=== PATIENT | female | born 1990 | race Caucasian/White ===

== ENCOUNTER → 2016-08-24 | Outpatient (CLI) | payer OTHER ==
[~2016-08-24] MED LIST: FAMO20TA5 PO; FLUT16SP22 NS; HYDR-2856 PO; LORA10CA PO; PRED20TA PO; SULF1TAB38 PO
--- OUTSIDE RECORDS SUMMARY | 2016-08-24 10:12 | XMS REPORT | Continuity of Care Document ---
Author Author [facility] Organization [facility] Address Unknown Phone Unavailable Allergies Active Description Code Type Severity Reaction Onset Reported/Identified Relationship to Patient Clinical Status Yes morphine [id number] Drug Allergy Unknown N/A 12/10/2014 Medications Problems Date Dx Coded Attending Type Code Diagnosis Diagnosed By 03/16/2013 MYESHA SHAFER MD Ot 373.13 ABSCESS OF EYELID 03/16/2013 MYESHA SHAFER MD Ot 682.6 CELLULITIS OF LEG 12/10/2014 BLAKE ARNOLD DO Ot 708.9 12/10/2014 BLAKE ANROLD DO Ot 782.1 Procedures Results Encounters ACCT No. Visit Date/Time Discharge Status Pt. Type Provider Facility Loc./Unit Complaint [id number] 12/10/2014 22:08:00 2014 23:51:00 DIS Emergency BLAKE ARNOLD DO [facility] ER [id number] 03/16/2013 12:34:00 2012 16:55:00 DIS Emergency MYESHA SHAFER MD [facility] ER POSS SPIDER BITE/ABSCESS ON LEG KNOT ON LEFT EYE
--- NOTE | 2016-08-24 11:59 | Diagnostic Imaging Report ---
US NON OB PELVIS COMP/TRANSVAG INDICATION: Pelvic pain since IUD placement. Technique: Transabdominal and transvaginal grayscale, color Doppler and pulse duplex imaging of the pelvis was performed. Findings: The uterus measures 6.6 x 3.9 x 3.6 cm. The myometrium is normal in echogenicity without discrete mass. There is a linear echogenic IUD located in the endometrial canal. Its position appears appropriate in the body and fundus region, with echogenic extensions extending into the bilateral cornua. The endometrium measures up to 0.4 cm in thickness. A small amount of simple appearing fluid is present in the lower endometrial canal. The right ovary measures 2.5 x 2.3 x 1.3 cm. Right ovary is physiologic in appearance with small follicles present. Blood flow is present in the right ovary by color Doppler and spectral duplex waveform imaging. The left ovary is not visualized due to overlying bowel gas. No suspicious adnexal mass on either side. Impression: 1. IUD appropriately positioned in the upper endometrial canal with limbs extending into the bilateral cornua. No evidence of uterine perforation. 2. Physiologic appearance of the right ovary. 3. Left ovary is not seen due to overlying bowel gas in the left adnexa. Dictated by: Dictated on workstation # [id number]
== END ==
LOC: RAD 10:08
PROVIDERS: ATTEND Nurse Practitioner Family
DX: R10.2 Pelvic and perineal pain (principal)
CPT/HCPCS: 76830; 76856

== ENCOUNTER → 2017-08-04 | Outpatient (CLI) | payer OTHER ==
--- NOTE | 2017-08-04 13:08 | Diagnostic Imaging Report ---
PROCEDURE: US OB SINGLE FETUS <14 WKS. TECHNIQUE: Multiple real-time grayscale images were obtained over the gravid uterus in various projections. INDICATION: Dating. FINDINGS: There is an intrauterine gestational sac containing a pole. The crown-rump length measurement is 3.5 cm consistent with 10 weeks 3 days gestation. heart rate is recorded at 172 beats per minute. No perigestational sac hemorrhage is detected. Adnexal evaluation was performed. The ovaries were not visualized due to overlying bowel gas. IMPRESSION: Single live IUP of 10 weeks 3 days gestational age. The estimated date of confinement sonographically is 02/27/2018. Dictated by: Dictated on workstation # [id number]
== END ==
LOC: RAD 10:47
PROVIDERS: ATTEND Family Medicine
DX: Z34.01 Encounter for supervision of normal first pregnancy, first trimester (principal); Z3A.10 10 weeks gestation of pregnancy
CPT/HCPCS: 76801

== ENCOUNTER → 2017-10-07 | Outpatient (CLI) | payer OTHER, MEDICAID ==
--- NOTE | 2017-10-07 13:52 | Diagnostic Imaging Report ---
INDICATION: survey. TECHNIQUE: Multiple real-time grayscale images were obtained over the gravid uterus. COMPARISON: 08/04/2017. FINDINGS: The prior OB ultrasound exam of 08/04/2017 noted a single live fetus of approximately 10 weeks 3 days gestation +/-1 week. On this exam, the fetus is again visualized. The fetus is now in transverse presentation. heart motion was noted and a rate of 153 BPM was recorded. There were no abnormalities identified with certainty. However, there do appear to be small bilateral choroid plexus cysts. These are of uncertain etiology. A short-term (4-6 week) followup exam would be recommended for further study. The placenta is posterior and there is no previa. The amniotic fluid volume is within normal limits. The growth parameters are fairly uniform and have progressed as expected since the prior exam. IMPRESSION: 1. There is a single live fetus of approximately 19 weeks 4 days gestation +/-1 week. The EDC remains February 27, 2018. 2. There were no abnormalities identified. However, there do appear to be small bilateral choroid plexus cysts. These are of uncertain etiology. Recommendations as above. 3. The growth parameters have progressed as expected since the prior study. Biometrical measurements are as follows: Biparietal 4.79 cm, age 20 weeks 4 days. Head circumference 17.79 cm, age 20 weeks 2 days. Abdominal circumference 14.09 cm, age 19 weeks 4 days. Femur length 3.01 cm, age 19 weeks 3 days. Sonographic estimate age: 20 weeks 0 days. Sonographic estimated date of delivery: 02/24/18. Estimated Weight: 297 gm (+/- 43 gm). LMP percentile: 41%. heart rate: 153 beats per minute. number: 1 of 1. Dictated by: Dictated on workstation # [id number]
== END ==
LOC: RAD 11:57
PROVIDERS: ATTEND Family Medicine
DX: Z36.89 Encounter for other specified antenatal screening (principal); Z3A.19 19 weeks gestation of pregnancy
CPT/HCPCS: 76805

== ENCOUNTER → 2017-11-15 | Outpatient (CLI) | payer OTHER, MEDICAID ==
--- NOTE | 2017-11-15 12:44 | Diagnostic Imaging Report ---
INDICATION: Followup choroid plexus cysts. TECHNIQUE: Multiple real-time grayscale images were obtained over the gravid uterus. COMPARISON: 10/07/2017. FINDINGS: There is a single living intrauterine . The biometry correlates with gestational age of 26 weeks 3 days. The fetus is in a cephalic presentation. There is a normal volume of amniotic fluid. The placenta is posterior. There is no previa. Note is again made of some choroid plexus cysts, however they are less prominent than seen on the prior examination. The heart rate is 147 beats per minute. IMPRESSION: 1. Single living intrauterine with sonographically estimated gestational age of 26 weeks 3 days and estimated date of confinement of February 18, 2018. 2. Persistent choroid plexus cysts, although the right-sided cyst is not well visualized as on the previous examination. 3. Otherwise, unremarkable limited anatomical survey. Biometrical measurements are as follows: Biparietal 6.62 cm, age 26 weeks 5 days. Head circumference 24.18 cm, age 26 weeks 2 days. Abdominal circumference 21.34 cm, age 25 weeks 6 days. Femur length 4.89 cm, age 26 weeks 4 days. Sonographic estimate age: 26 weeks 3 days. Sonographic estimated date of delivery: 02/18/18. Estimated Weight: 898 gm (+/- 131 gm). LMP percentile: 83%. heart rate: 147 beats per minute. number: 1 of 1. Dictated by: Dictated on workstation # [id number]
== END ==
LOC: RAD 10:01
PROVIDERS: ATTEND Family Medicine
DX: O99.89 Other specified diseases and conditions complicating pregnancy, childbirth and the puerperium (principal); G93.0 Cerebral cysts; Z3A.26 26 weeks gestation of pregnancy
CPT/HCPCS: 76816

== ENCOUNTER 2018-02-23 08:15 | Inpatient (IN) | payer OTHER, MEDICAID ==
[~2018-02-23] VITALS: Ht 167.6 cm; Wt 92.1 kg
[2018-02-23 19:30] VITALS: BP 127/80
--- OUTSIDE RECORDS SUMMARY | 2018-02-23 19:30 | XMS REPORT ---
Author Author HOLLY CASANOVA Organization [facility] Address [address] [place] [address] Care Team Providers Care [employer] Operator Name Role Phone EDILBERTO HOLLY Unavailable PROBLEMS Type Condition ICD9-CM Code [id number] Code Onset Dates Condition Status SNOMED Code Problem Seasonal allergic rhinitis, unspecified allergic rhinitis trigger J30.2 Active [id number] ALLERGIES Substance Reaction Event Type Date Status Morphine Sulfate Unknown Drug Allergy Aug, Active peanuts Unknown Non Drug Allergy Aug, Active SOCIAL HISTORY Never Assessed PLAN OF CARE Activity Details Follow Up pending us or with pcp Reason: VITAL SIGNS Height 64 in 2016-08-13 Weight 134.4 lbs 2016-08-13 Temperature 98.0 degrees Fahrenheit 2016-08-13 Heart Rate 84 bpm 2016-08-13 Respiratory Rate 18 2016-08-13 BMI 23.07 kg/m2 2016-08-13 Blood pressure systolic 124 mmHg 2016-08-13 Blood pressure diastolic 82 mmHg 2016-08-13 MEDICATIONS Medication Instructions Dosage Frequency Start Date End Date Duration Status Mirena Active Benadryl 25 MG Orally every 8 hrs 1 capsule as needed 8h Active Angelica 180 MG Orally Once a day 1 tablet as needed 24h Active Phentermine HCl 37.5 MG Active RESULTS Name Result Date Reference Range UA LONG DIP (IN HOUSE) 2016-08-13 Lot # [id number] Exp date 07/14/17 Clarity slightly cloudy Color yellow Odor no GLU Negative FAITH Negative KET Negative SG <=1.005 BLO Negative pH 6.0 Protein Negative URO 0.2 NIT Negative ASAD Negative Lot # Exp date PROCEDURES Procedure Date Ordered Result Body Site URINALYSIS, AUTO, W/O SCOPE August 13, 2016 IMMUNIZATIONS No Known Immunizations MEDICAL (GENERAL) HISTORY Type Description Date Medical History Seasonal Allergies Surgical History Tonsilectomy Surgical History Breast Reduction
--- OUTSIDE RECORDS SUMMARY | 2018-02-23 19:30 | XMS REPORT ---
Author Author HOLLY CASANOVA Organization [facility] Address [address] [place] [address] Care Team Providers Care [employer] Teacher Name Role Phone HOLLY CASANOVA Unavailable PROBLEMS Type Condition ICD9-CM Code BMB26-UK Code Onset Dates Condition Status SNOMED Code Problem Seasonal allergic rhinitis, unspecified allergic rhinitis trigger J30.2 Active [id number] ALLERGIES Substance Reaction Event Type Date Status Morphine Sulfate Unknown Drug Allergy Jul, Active SOCIAL HISTORY Never Assessed PLAN OF CARE Activity Details Follow Up if not improving with PCP or reg follow up Reason: VITAL SIGNS Height 64 in 2016-07-23 Weight 132.0 lbs 2016-07-23 Temperature 99.3 degrees Fahrenheit 2016-07-23 Heart Rate 86 bpm 2016-07-23 Respiratory Rate 18 2016-07-23 BMI 22.66 kg/m2 2016-07-23 Blood pressure systolic 102 mmHg 2016-07-23 Blood pressure diastolic 66 mmHg 2016-07-23 MEDICATIONS Medication Instructions Dosage Frequency Start Date End Date Duration Status Sudafed 12 Hour 120 MG Orally every 12 hrs 1 tablet as needed 12h Jul, 10 days Active Angelica 180 MG Orally Once a day 1 tablet as needed 24h Active Mirena Active Benadryl 25 MG Orally every 8 hrs 1 capsule as needed 8h Active PredniSONE 20 mg Orally Once a day 1 tablet 24h Jul, Jul, 05 days Active RESULTS No Results PROCEDURES No Known procedures IMMUNIZATIONS No Known Immunizations MEDICAL (GENERAL) HISTORY Type Description Date Medical History Seasonal Allergies Surgical History Tonsilectomy Surgical History Breast Reduction
[2018-02-23] MEDS ORDERED: D5 LR IV SOLUTION 1,000 ML IV ONE (19:32)
[2018-02-23] MEDS ORDERED: DINOPROSTONE 10 MG (CERVIDIL) INSERT ONE ×2 (19:33→19:38)
[2018-02-23] MEDS ORDERED: FEXO180T84 PO (19:47)
[2018-02-23] MEDS ORDERED: CALC-308 PO (19:47)
[2018-02-23] MEDS ORDERED: PREN-142 PO (19:47)
[2018-02-23] MEDS ORDERED: DINOPROSTONE 10 MG (CERVIDIL) INSERT PV ONE (20:00)
[2018-02-23] MEDS ORDERED: CATHETER FLUSH 10 ML SYR IV PRN (20:00)
[2018-02-23] MEDS ORDERED: BUTORPHANOL INJ 2 MG/ML (STADOL) VIAL IV PRN (20:00)
[2018-02-23] MEDS ORDERED: MINERAL OIL CONCENTRATE 99.9% 15 ML UDC TOP PRN (20:00)
[2018-02-23] MEDS ORDERED: ZOLPIDEM 5 MG (AMBIEN) TAB PO PRN (20:00)
[2018-02-23] MEDS: D5 LR IV SOLUTION 1,000 ML IV SCH (20:15)
[2018-02-23 20:19] LABS: BASOPHILS % (AUTO) 0 % (0-10); EOSINOPHILS # (AUTO) 0.1 10^3/uL (0.0-0.3); EOSINOPHILS % (AUTO) 1 % (0-10); HEMATOCRIT 32 % (35-52); HEMOGLOBIN 11.1 G/DL (11.5-16.0); LYMPHOCYTES # (AUTO) 2.6 X 10^3 (1.0-4.0); LYMPHOCYTES % (AUTO) 23 % (12-44); MEAN CORPUSCULAR HEMOGLOBIN 31 PG (25-34); MEAN CORPUSCULAR HGB CONC 35 G/DL (32-36); MEAN CORPUSCULAR VOLUME 89 FL (80-99); MEAN PLATELET VOLUME 10.7 FL (7.4-10.4); MONOCYTES # (AUTO) 1.1 X 10^3 (0.0-1.0); MONOCYTES % (AUTO) 10 % (0-12); NEUTROPHILS # (AUTO) 7.3 X 10^3 (1.8-7.8); NEUTROPHILS % (AUTO) 66 % (42-75); PLATELET COUNT 239 10^3/uL (130-400); RED CELL DISTRIBUTION WIDTH 14.5 % (10.0-14.5); WHITE BLOOD COUNT 11.1 10^3/uL (4.3-11.0)
[2018-02-23 20:45] LABS: BILIRUBIN,URINE NEGATIVE (NEGATIVE); CLARITY,URINE CLEAR; COLOR,URINE YELLOW; GLUCOSE, URINE (UA) NEGATIVE (NEGATIVE); KETONES,URINE NEGATIVE (NEGATIVE); LEUKOCYTE ESTERASE ,URINE NEGATIVE (NEGATIVE); NITRITE,URINE NEGATIVE (NEGATIVE); PH,URINE 7 (5-9); PROTEIN,URINE NEGATIVE (NEGATIVE); UROBILINOGEN,URINE NORMAL (NORMAL)
[2018-02-23 20:55] LABS: RBC,URINE RARE /HPF
[2018-02-23 20:56] LABS: SQUAMOUS EPITHELIAL CELL,UR 0-2 /HPF
[2018-02-23 23:45] VITALS: BP 138/74
[2018-02-24] VITALS (32 sets, daily range): BP systolic 106–168; BP diastolic 52–97
[2018-02-24] MEDS: D5 LR IV SOLUTION 1,000 ML IV SCH (03:42)
[2018-02-24] MEDS ORDERED: OXYTOCIN/NORMAL SALINE 500 ML IV SCH ×2 (07:24→12:33)
--- NOTE | 2018-02-24 07:28 | History & Physical-OB ---
OB - Chief Complaint & HPI Date/Time Date of Admission: Date of Admission: Feb 23, 2018 at 19:09 Time Seen by Provider: 07:20 Chief Complaint/History OB-Reason for Admission/Chief: Induction of Labor Hx : 1 Hx Para: 0 Expected Date of Delivery: Feb 27, 2018 Gestational Age in Weeks: 39 Gestational Age in Days: 3 Admission Nurse Assessment Rev: Yes History of Labs GBS negative at 36 weeks Allergies and Home Medications Allergies Coded Allergies: morphine (Verified Allergy, Unknown, 12/10/14) Home Medications Calcium Carbonate 500 Mg Tab.chew, 500 MG PO DAILY, (Reported) Fexofenadine HCl 180 Mg Tablet, 180 MG PO DAILY, (Reported) Vit No.124/Iron/FA 1 Each Tablet, 1 EACH PO DAILY, (Reported) Patient Home Medication List Home Medication List Reviewed: Yes OB - History Hx of Present Care: Yes Ultrasounds: Normal mid trimester US Abnormal Ultrasound Findings: Choroid plexus cysts resolution Obstetrical Complications: None Medical Complications: None Delivery History Hx Blood Disorders: No Adverse Rxn to Tranfusion: No Patient Past Medical History No chronic medical problems Social History/Family History HIV/AIDS: No Recent Infectious Disease Expo: No Sexually Transmitted Disease: No Alcohol Use: Denies Use Recreational Drug Use: No Immunizations Hepatitis A: Yes Hepatitis B: Yes Tetanus Booster (TDap): More than 5yrs OB - Admission Exam Physical Exam HEENT: Moist Membranes Heart: Rhythm Normal Lungs: Clear Abdomen: Gravid Cervical Dilatation: 1cm Effacement: 75% Station: -3 Membranes: Intact Heart Rate: 140's Accelerations: Accelerations Present Decelerations: No Decelerations Short Term Variability: Present Application Penetration Tester Variability: Average (6-25) Contractions on Admission: >10 Minutes Apart Intensity: Mild Sebastian Scoring Tool (Modified) Dilation (cm): 1-2cm (1) Effacement (%): 51-79% (2) Descent/Station: -2 (1) Cervix Consistency: Medium(1) Cervix Position: Middle/Mid-Position (1) Sebastian Score: 5 Labs Laboratory Tests Test 02/23/18 19:30 02/23/18 20:10 Range/Units White Blood Count 11.1 H 4.3-11.0 10^3/uL Red Blood Count 3.60 L 4.35-5.85 10^6/uL Hemoglobin 11.1 L 11.5-16.0 G/DL Hematocrit 32 L 35-52 % Mean Corpuscular Volume 89 80-99 FL Mean Corpuscular Hemoglobin 31 25-34 PG Mean Corpuscular Hemoglobin Concent 35 32-36 G/DL Red Cell Distribution Width 14.5 10.0-14.5 % Platelet Count 239 130-400 10^3/uL Mean Platelet Volume 10.7 H 7.4-10.4 FL Neutrophils (%) (Auto) 66 42-75 % Lymphocytes (%) (Auto) 23 12-44 % Monocytes (%) (Auto) 10 0-12 % Eosinophils (%) (Auto) 1 0-10 % Basophils (%) (Auto) 0 0-10 % Neutrophils # (Auto) 7.3 1.8-7.8 X 10^3 Lymphocytes # (Auto) 2.6 1.0-4.0 X 10^3 Monocytes # (Auto) 1.1 H 0.0-1.0 X 10^3 Eosinophils # (Auto) 0.1 0.0-0.3 10^3/uL Basophils # (Auto) 0.0 0.0-0.1 10^3/uL Urine Color YELLOW Urine Clarity CLEAR Urine pH 7 5-9 Urine Specific Weaver 1.010 L 1.016-1.022 Urine Protein NEGATIVE NEGATIVE Urine Glucose (UA) NEGATIVE NEGATIVE Urine Ketones NEGATIVE NEGATIVE Urine Nitrite NEGATIVE NEGATIVE Urine Bilirubin NEGATIVE NEGATIVE Urine Urobilinogen NORMAL NORMAL MG/DL Urine Leukocyte Esterase NEGATIVE NEGATIVE Urine RBC (Auto) NEGATIVE NEGATIVE Urine RBC RARE /HPF Urine WBC NONE /HPF Urine Squamous Epithelial Cells 0-2 /HPF Urine Crystals NONE /LPF Urine Bacteria NONE /HPF Urine Casts NONE /LPF Urine Mucus NEGATIVE /LPF Urine Culture Indicated NO OB - Assessment/Plan/Diagnosis Assessment Assessment: induction of labor Admission Dx 1. IUP at term 39w3d Admission Status: Inpatient Order (span 2 midnights) Reason for Inpatient Admission: L&D Plan Plan: Induction (by cervidil) Induction Method: AROM Other Plan -would like epidural -pitocin as needed. ANGELINA MANRIQUEZ MD Feb 24, 2018 07:28
[2018-02-24] MEDS ORDERED: SUFENTA 0.6MCG/ML BUPIVA 0.125 100 ML ONE (07:49)
[2018-02-24] MEDS ORDERED: LIDOCAINE PF 2% 2 ML (XYLOCAINE) VIAL ONE ×2 (08:02)
[2018-02-24] MEDS ORDERED: fentaNYL INJECTION 100 MCG/2 ML AMP ONE (08:02)
[2018-02-24] MEDS ORDERED: BUPIVACAINE 0.25% 30 ML (SENSORCAINE) VIAL ONE (08:02)
[2018-02-24] MEDS ORDERED: LACTATED RINGERS 1,000 ML IV SCH (08:28)
[2018-02-24] MEDS ORDERED: diphenhydrAMINE 50 MG/ML INJ (BENADRYL) IV PRN (08:30)
[2018-02-24] MEDS ORDERED: NALOXONE 0.4 MG/ML 1 ML (NARCAN) VIAL IV PRN (08:30)
[2018-02-24] MEDS ORDERED: ONDANSETRON 4 MG/2 ML (SDV) Z0FRAN IV PRN (08:30)
[2018-02-24] MEDS ORDERED: EPIDURAL (SUFENTA 0.6MCG/ML BUPIVA 0.125%) 100 ML BAG EPI PRN (08:30)
[2018-02-24] MEDS ORDERED: MEPIVACAINE (CARBOCAINE) 2% 20 ML VIAL ONE (11:18)
--- NOTE | 2018-02-24 12:37 | OB Labor & Delivery Record ---
L&D History Date of Service Date of Service: Feb 24, 2018 History Expected Date of Delivery: Feb 27, 2018 Gestational Age in Weeks: 39 Hx : 1 Hx Para: 0 Complications Events: Routine care Operative Indications (Cesarea: N/A-Vaginal Delivery Intrapartal Events: None L&D Stage1 Stage One Onset of Labor - Date: Feb 24, 2018 Onset of Labor - Time: 07:10 Monitors and Tracing Monitor Mode: Internal Heart Rate: 80 Monitor Accelerations: Uniform Monitor Decelerations: Variable Station: 0 Sustainable Landscape Architect Variability: Average (6-10) Short Term Variability: Present Presentation: Vertex Vital Signs VS - Last 72 Hours, by Label 02/23/18 02/23/18 02/24/18 02/24/18 19:30 23:45 04:52 06:00 Temp 98.3 98.2 98.0 Pulse 90 82 72 68 Resp 18 18 18 B/P (MAP) 127/80 (96) 138/74 (95) 123/70 (87) 129/64 (85) 02/24/18 02/24/18 02/24/18 02/24/18 07:30 08:00 08:15 08:18 Pulse 73 71 81 82 Resp 18 18 B/P (MAP) 122/77 (92) 142/87 (105) 168/84 (112) 158/97 (117) Pulse Ox 99 O2 Delivery Room Air 02/24/18 02/24/18 02/24/18 02/24/18 08:23 08:28 08:29 08:30 Pulse 75 76 78 81 Resp 18 B/P (MAP) 148/88 (108) 143/85 (104) 125/75 (92) 114/64 (81) Pulse Ox 99 99 99 O2 Delivery Room Air Room Air Room Air Room Air 02/24/18 02/24/18 02/24/18 02/24/18 08:36 08:45 08:50 08:53 Temp 97.2 Pulse 79 82 75 77 Resp 18 B/P (MAP) 106/52 (70) 118/56 (76) 126/61 (82) 114/54 (74) Pulse Ox 98 98 98 98 O2 Delivery Room Air Room Air Room Air Room Air 02/24/18 02/24/18 02/24/18 02/24/18 08:56 08:59 09:00 09:15 Pulse 82 83 72 71 Resp 18 18 18 B/P (MAP) 112/56 (74) 116/59 (78) 109/70 (83) 113/67 (82) Pulse Ox 99 99 99 100 O2 Delivery Room Air Room Air Room Air Room Air 02/24/18 02/24/18 02/24/18 02/24/18 09:30 09:45 10:00 10:15 Pulse 67 69 72 67 Resp 18 18 18 18 B/P (MAP) 121/68 (85) 114/66 (82) 125/69 (87) Pulse Ox 98 100 100 100 O2 Delivery Room Air Room Air Room Air Room Air 02/24/18 02/24/18 02/24/18 02/24/18 10:30 10:45 11:00 11:15 Temp 97.5 Pulse 67 70 68 105 Resp 18 18 18 B/P (MAP) 139/87 (104) 143/86 (105) 165/87 (113) Pulse Ox 100 100 100 O2 Delivery Room Air Room Air Room Air Room Air 02/24/18 02/24/18 02/24/18 02/24/18 11:20 11:25 11:30 11:32 O2 Delivery Room Air Non Rebreather Non Rebreather Non Rebreather O2 Flow Rate 15.00 15.00 15.00 Signs of Distress by FHT Signs of Distress no Fundal Ht/Cervical Dilatation Uterus Position: At Umbilicus Rupture of Membranes Spontaneous Ruture of Membrane: No Amniotic Membrane Rupture Time: 0709 Amniotic Membrane Fluid Desc.: Clear Induction/Anesthesia Epidural Cath Placement - Time: 820 L&D Stage2 Stage Two Stage II Date: Feb 24, 2018 Stage II Time: 11:22 Monitors and Tracing Monitor Mode: Internal Heart Rate: 80 Monitor Accelerations: Uniform Monitor Decelerations: Variable [facility] Variability: Average (6-10) Short Term Variability: Present Position: Left Occiput Anterior Presentation: Vertex Signs of Distress by FHT Signs of Distress no Cord Descript/Complications Cord Vessel Description: 3 Vessels Delivery Type Infant Delivery Method: Spontaneous Vaginal Anterior Shoulder: Left Episiotomy/Perineal Laceration Laceraction(s)/Extensions: Yes Episiotomy Description: Midline Sutures Used: Vicryl Condition of Delivery 1 minute Comment: 7 5 minute Comment: 8 Condition of Condition of Infant: Living Exam: No Observed Abnormalities Resuscitation Resuscitation: N/A - Spontaneous Resp, Bag and Mask L&D Stage3 Stage Three Stage III Date: Feb 24, 2018 Stage III Time: 11:26 Pictocin Pitocin Administration mu/min: 6 Pitocin ml/hr: 6 Pitocin Administration Comment: 0935pitocin increase Placenta Delivery Placenta Delivery: Spontaneous Delivery Summary Summary Estimated blood loss (mL): 250 Condition of Delivery Examined: Cervix Examined Post Hemorrhage: No Intervention Required no ANGELINA MANRIQUEZ MD Feb 24, 2018 12:37
[2018-02-24] MEDS ORDERED: BENZOCAINE/MENTHOL (DERMOPLAST) 56 ML CAN TP PRN (12:45)
[2018-02-24] MEDS ORDERED: MEASLES,MUMPS,RUBELLA 1 EA INJ SQ ONE (12:45)
[2018-02-24] MEDS ORDERED: WITCH HAZEL(TUCKS) 40 EA JAR TOP PRN (12:45)
[2018-02-24] MEDS ORDERED: HYDROcodone/APAP 5 MG/325 MG (LORTAB) TAB PO PRN (12:45)
[2018-02-24] MEDS ORDERED: TETANUS,DIPTH,PERTUSS P/F (BOOSTRIX) 0.5 ML VIAL IM ONE (12:45)
[2018-02-24] MEDS: IBUPROFEN 600 MG (MOTRIN) TAB PO SCH ×2 (13:26→19:42)
[2018-02-24] MEDS ORDERED: CATHETER FLUSH 10 ML SYR IV SCH (14:00)
[2018-02-24] MEDS ORDERED: DOCUSATE SODIUM 100 MG (COLACE) CAP PO ONE (23:39)
[2018-02-24] MEDS: DOCUSATE SODIUM 100 MG (COLACE) CAP PO SCH (23:45)
[2018-02-25] MEDS: IBUPROFEN 600 MG (MOTRIN) TAB PO SCH ×4 (00:42→18:54)
[2018-02-25 04:00] VITALS: BP 103/64
[2018-02-25 05:58] LABS: BASOPHILS % (AUTO) 0 % (0-10); EOSINOPHILS # (AUTO) 0.1 10^3/uL (0.0-0.3); EOSINOPHILS % (AUTO) 1 % (0-10); HEMATOCRIT 30 % (35-52); HEMOGLOBIN 10.2 G/DL (11.5-16.0); LYMPHOCYTES # (AUTO) 2.7 X 10^3 (1.0-4.0); LYMPHOCYTES % (AUTO) 22 % (12-44); MEAN CORPUSCULAR HEMOGLOBIN 31 PG (25-34); MEAN CORPUSCULAR HGB CONC 35 G/DL (32-36); MEAN CORPUSCULAR VOLUME 91 FL (80-99); MEAN PLATELET VOLUME 10.6 FL (7.4-10.4); MONOCYTES # (AUTO) 1.1 X 10^3 (0.0-1.0); MONOCYTES % (AUTO) 9 % (0-12); NEUTROPHILS # (AUTO) 8.5 X 10^3 (1.8-7.8); NEUTROPHILS % (AUTO) 69 % (42-75); PLATELET COUNT 196 10^3/uL (130-400); RED BLOOD COUNT 3.25 10^6/uL (4.35-5.85); RED CELL DISTRIBUTION WIDTH 14.6 % (10.0-14.5); WHITE BLOOD COUNT 12.4 10^3/uL (4.3-11.0)
--- NOTE | 2018-02-25 06:53 | Anesthesia-Regional Post-Op ---
Regional Patient Condition Mental Status: Alert, Oriented x3 Circulation: Same as Pre-Op Headache: Absent Sensation: Full Recovery Motor Block: Absent Post Op Complications Complications None Follow Up Care/Instructions Patient Instructions None needed. Anesthesia/Patient Condition Patient is doing well, no complaints, stable vital signs, no apparent adverse anesthesia problems. No complications reported per nursing. DIANA HILTON CRNA Feb 25, 2018 06:53
[2018-02-25 08:00] VITALS: BP 138/94
[2018-02-25 11:50] VITALS: BP 124/74
--- NOTE | 2018-02-25 15:39 | Progress Note (SOAP) ---
Subjective Date Seen by Provider: Feb 25, 2018 Time Seen by Provider: 07:40 Subjective/Events-last exam No current complaints. No significant vaginal bleeding. She is her son without problems thus far. Objective Exam Vital Signs Date Time Temp Pulse Resp B/P (MAP) Pulse Ox O2 Delivery O2 Flow Rate FiO2 02/25/18 11:50 98.1 84 124/74 (91) 97 Room Air 02/25/18 08:00 97.9 79 18 138/94 (109) 98 Room Air 02/25/18 04:00 98.2 73 18 103/64 (77) 97 02/24/18 23:40 98.5 78 18 110/77 (88) 98 02/24/18 19:40 98.4 77 18 131/87 (102) 99 I & O 02/25/18 07:00 Intake Total 1900 ml Balance 1900 ml Capillary Refill : General Appearance: No Apparent Distress Gastrointestinal: soft (with uterus firm) Results Lab Laboratory Tests 02/25/18 05:25: White Blood Count 12.4H, Red Blood Count 3.25L, Hemoglobin 10.2L, Hematocrit 30L , Mean Corpuscular Volume 91, Mean Corpuscular Hemoglobin 31, Mean Corpuscular Hemoglobin Concent 35, Red Cell Distribution Width 14.6H, Platelet Count 196, Mean Platelet Volume 10.6H, Neutrophils (%) (Auto) 69, Lymphocytes (%) (Auto) 22 , Monocytes (%) (Auto) 9, Eosinophils (%) (Auto) 1, Basophils (%) (Auto) 0, Neutrophils # (Auto) 8.5H, Lymphocytes # (Auto) 2.7, Monocytes # (Auto) 1.1H, Eosinophils # (Auto) 0.1, Basophils # (Auto) 0.0 Assessment/Plan Assessment/Plan Assess & Plan/Chief Complaint 1. S/P day 1 -continue with routine PP care orders Clinical Quality Measures DVT/VTE Risk/Contraindication: Risk Factor Score Per Nursin RFS Level Per Nursing on Admit: 1=Low/No VTE PPX ANGELINA MANRIQUEZ MD Feb 25, 2018 15:39
[2018-02-25 18:53] VITALS: BP 128/81
[2018-02-26 00:08] VITALS: BP 130/75
[2018-02-26] MEDS: IBUPROFEN 600 MG (MOTRIN) TAB PO SCH (00:09)
[2018-02-26] MEDS: DOCUSATE SODIUM 100 MG (COLACE) CAP PO SCH (00:09)
[2018-02-26 06:00] VITALS: BP 125/85
--- NOTE | 2018-02-26 06:39 | Discharge Inst-Women's Service ---
Discharge Inst-Women's Serv Depart Medication/Instructions New, Converted or Re-Newed RX: Other (no new prescriptions) Instructions May take ibuprofen [id number] 200 mg and use 2 or 3 as needed every 6 hours for cramping Consults/Follow Up Additional Follow Up: Yes (With Dr. Manriquez in 6 weeks) Activity Activity: Activity as Tolerated Driving Instructions: No Driving for 1 Week Nothing Inside Vagina: No [place] (For 6 weeks) Diet Discharge Diet: Regular Diet Return to The Hospital For: As below Symptoms to Report to : Bleeding Excessive, Fever Over 101 Degrees F, Vaginal Discharge Foul For Any Problems or Questions: Contact Your Physician ANGELINA MANRIQUEZ MD Feb 26, 2018 06:39
--- NOTE | 2018-02-26 06:42 | Discharge Summary ---
Diagnosis/Chief Complaint Date of Admission Feb 23, 2018 at 19:09 Date of Discharge February 26, 2018 Admission Diagnosis Admission Diagnosis 1. Intrauterine at term 39 weeks Discharge Diagnosis 1. Intrauterine at term 39 weeks Chief Complaint/HPI Chief Complaint/HPI 27-year-old female 1 now term 1 who initially presented to labor and delivery during the evening of February 23, 2018 for induction of labor. Patient was noted to be at 39 weeks 3 days gestation upon presentation. She underwent Cervidil cervical ripening and tolerated well. Her care was uneventful. Discharge Summary-OBS Procedures 1. Epidural per anesthesia 2. Spontaneous vaginal delivery 3. Repair of midline episiotomy Discharge Physical Examination Allergies: Coded Allergies: morphine (Verified Allergy, Unknown, 12/10/14) Vitals & I&Os Vital Sign - Last 12Hours Date Time Temp Pulse Resp B/P (MAP) Pulse Ox O2 Delivery O2 Flow Rate FiO2 02/26/18 00:08 99.2 74 18 130/75 (93) 98 02/25/18 18:53 Room Air 02/24/18 11:32 15.00 General Appearance: No Acute Distress Respiratory: Normal Air Movement Cardiovascular: Regular Rate Abdominal: Normal Bowel Sounds, Soft Skin: No Rashes Hospital Course Following admission patient underwent Cervidil cervical ripening. She was noted to have a contraction pattern by the morning of February 24, 2018. Patient ultimately underwent amniotomy with clear fluid noted. She received epidural per anesthesia and tolerated well. She did require Pitocin augmentation. She ultimately went on to completion and delivered a term viable male with Apgars of 7 and 1 minute and 8 at 5 minutes. Following delivery patient underwent routine care orders. She had no complications during the remainder of hospital stay. Her hemoglobin the day after delivery was noted to be 10.2 as compared to 11.1 on admission. She was able to tolerate regular diet. She was ambulatory and had no shortness of breath or chest pain and she was felt ready for dismissal in the morning of February 26, 2018. Discharge Instructions to patient/family Please see electronic discharge instructions given to patient. Discharge Medications Reviewed and agree with Discharge Medication list on patient's Discharge Instruction sheet Clinical Quality Measures DVT/VTE Risk/Contraindication: Risk Factor Score Per Nursin RFS Level Per Nursing on Admit: 1=Low/No VTE PPX ANGELINA MANRIQUEZ MD Feb 26, 2018 06:42
== END 2018-02-26 08:25 | disposition home or self-care (01) | DRG 775 ==
LOC: LDRP 19:09
PROVIDERS: ADMIT Family Medicine; ATTEND Family Medicine
PROC: 10E0XZZ Delivery of Products of Conception, External Approach (ICD-10-PCS; principal; 2018-02-24)
PROC: 0W8NXZZ Division of Female Perineum, External Approach (ICD-10-PCS; 2018-02-24)
DX: O80 Encounter for full-term uncomplicated delivery (principal); Z3A.39 39 weeks gestation of pregnancy; Z37.0 Single live birth
CPT/HCPCS: 36415; 81000; 85025; 86850; 86900; 86901

== ENCOUNTER 2020-06-05 00:33 | Day surgery (SDC) | payer BC, MEDICAID ==
[2020-06-05] VITALS (13 sets, daily range): BP systolic 93–125; BP diastolic 47–75
[~2020-06-05] VITALS: Ht 162.6 cm; Wt 62.8 kg
[~2020-06-05 00:33] MED LIST changes: +CALC-308 PO; +FEXO180T84 PO; +PREN-142 PO
[2020-06-05] MEDS ORDERED: ONDANSETRON 4 MG/2 ML (SDV) Z0FRAN ONE ×2 (00:51→11:52)
--- NOTE | 2020-06-05 00:56 | ED Abdominal Pain ---
General Chief Complaint: Abdominal/GI Problems Stated Complaint: SEVERE RT SIDE ABD PAIN Nursing Triage Note: PT AMBULATE TO ROOM 06 WITH C/O ABD PAIN STARTING THIS AFTERNOON. PT C/O N/V. PT STATES THE PAIN IS WORSE NOW. Sepsis Screen: No Definite Risk Source of Information: Patient Exam Limitations: No Limitations History of Present Illness Date Seen by Provider: Jun 05, 2020 Time Seen by Provider: 00:37 Initial Comments Patient presents to the ER by private conveyance with chief complaint pain starting this evening 7 out of 10 on the right side of her abdomen. She did not think much of it took some antacids but that did not help. She has nauseated but not vomiting. She has been constipated with her last bowel movement being small, yesterday on the . She is not having any blood in her stool. She does not have a history of abdominal surgeries or significant medical problems. She is on Mirena so she does not have regular periods. She endorses dysuria. She denies a history of kidney stones. Allergies and Home Medications Allergies Coded Allergies: morphine (Verified Allergy, Unknown, 12/10/14) Home Medications Fexofenadine HCl 180 Mg Tablet, 180 MG PO DAILY, (Reported) Vit No.124/Iron/FA 1 Each Tablet, 1 EACH PO DAILY, (Reported) Patient Home Medication List Home Medication List Reviewed: Yes Review of Systems Review of Systems Constitutional: No chills, No diaphoresis EENTM: No Blurred Vision, No Double Vision Respiratory: Denies Cough, Denies Shortness of Air Cardiovascular: Denies Chest Pain, Denies Lightheadedness Gastrointestinal: See HPI; Denies Abdomen Distended; Abdominal Pain, Constipated; Denies Diarrhea; Nausea; Denies Vomiting Genitourinary: Denies Burning, Denies Discharge Musculoskeletal: No back pain, No joint pain Skin: No pruritus, No rash Psychiatric/Neurological: Denies Headache, Denies Numbness All Other Systems Reviewed Negative Unless Noted: Yes Past Sqdlkym-Lregru-Tifjbu Hx Patient Social History Alcohol Use: Denies Use Recreational Drug Use: No Smoking Status: Former Smoker Type Used: Cigarettes Former Smoker, Quit: Jun 25, 2017 2nd Hand Smoke Exposure: No Recent Foreign Travel: No Contact w/Someone Who Travel: No Recent Infectious Disease Expo: No Recent Hopitalizations: No Physical Abuse: No Sexual Abuse: No Mistreated: No Fear: No Immunizations Up To Date Tetanus Booster (TDap): More than 5yrs PED Vaccines UTD: Yes Seasonal Allergies Seasonal Allergies: Yes Past Medical History Surgeries: Yes Respiratory: No Cardiac: No Neurological: No Female Reproductive Disorders: Denies Sexually Transmitted Disease: No HIV/AIDS: No Genitourinary: No Gastrointestinal: No Musculoskeletal: No Endocrine: No HEENT: No Cancer: No Psychosocial: No Integumentary: No Blood Disorders: No Adverse Reaction/Blood Tranf: No Family Medical History Bone cancer (Maternal grandmother) FH: breast cancer (Grandmother) FH: colon cancer (Mother) Physical Exam Vital Signs Vital Signs - First Documented 06/05/20 00:45 Temp 35.9 Pulse 89 Resp 18 B/P (MAP) 107/77 (87) O2 Delivery Room Air Capillary Refill : Less Than 3 Seconds Height/Weight/BMI Height: 5'6.00" Weight: 203lbs. 0.8oz. [id number]; 22.00 BMI Method:Stated General Appearance: WD/WN, mild distress HEENT: PERRL/EOMI, pharynx normal Neck: full range of motion, supple, normal inspection Respiratory: lungs clear, normal breath sounds, no respiratory distress, no acc essory muscle use Cardiovascular: normal peripheral pulses, regular rate, rhythm Peripheral Pulses: 2+ Radial Pulses (R), 2+ Radial Pulses (L) Gastrointestinal: normal bowel sounds, guarding, tenderness (Right upper and right lower quadrant as well as Rovsing sign and psoas sign.) Back: normal inspection, no vertebral tenderness, CVA tenderness (R); No CVA tenderness (L) Neurologic/Psychiatric: alert, normal mood/affect, oriented x 3 Skin: normal color, warm/dry Progress/Results/Core Measures Results/Orders Lab Results Laboratory Tests Test 06/05/20 00:50 06/05/20 00:55 Range/Units Urine Color YELLOW Urine Clarity SL CLOUDY Urine pH 6.0 5-9 Urine Specific [place] 1.025 H 1.016-1.022 Urine Protein NEGATIVE NEGATIVE Urine Glucose (UA) NEGATIVE NEGATIVE Urine Ketones NEGATIVE NEGATIVE Urine Nitrite NEGATIVE NEGATIVE Urine Bilirubin NEGATIVE NEGATIVE Urine Urobilinogen 0.2 < = 1.0 MG/DL Urine Leukocyte Esterase NEGATIVE NEGATIVE Urine RBC (Auto) NEGATIVE NEGATIVE Urine RBC NONE /HPF Urine WBC 2-5 /HPF Urine Squamous Epithelial Cells 2-5 /HPF Urine Crystals NONE /LPF Urine Bacteria MODERATE H /HPF Urine Casts NONE /LPF Urine Mucus MODERATE H /LPF Urine Trichomonas FEW H /HPF Urine Culture Indicated YES White Blood Count 12.5 H 4.3-11.0 10^3/uL Red Blood Count 4.18 3.80-5.11 10^6/uL Hemoglobin 12.9 11.5-16.0 g/dL Hematocrit 38 35-52 % Mean Corpuscular Volume 92 80-99 fL Mean Corpuscular Hemoglobin 31 25-34 pg Mean Corpuscular Hemoglobin Concent 34 32-36 g/dL Red Cell Distribution Width 11.7 10.0-14.5 % Platelet Count 238 130-400 10^3/uL Mean Platelet Volume 9.3 9.0-12.2 fL Immature Granulocyte % (Auto) 0 % Neutrophils (%) (Auto) 79 H 42-75 % Lymphocytes (%) (Auto) 13 12-44 % Monocytes (%) (Auto) 7 0-12 % Eosinophils (%) (Auto) 0 0-10 % Basophils (%) (Auto) 0 0-10 % Neutrophils # (Auto) 9.8 H 1.8-7.8 10^3/uL Lymphocytes # (Auto) 1.6 1.0-4.0 10^3/uL Monocytes # (Auto) 0.9 0.0-1.0 10^3/uL Eosinophils # (Auto) 0.0 0.0-0.3 10^3/uL Basophils # (Auto) 0.0 0.0-0.1 10^3/uL Immature Granulocyte # (Auto) 0.1 0.0-0.1 10^3/uL Sodium Level 137 135-145 MMOL/L Potassium Level 3.7 3.6-5.0 MMOL/L Chloride Level 102 98-107 MMOL/L Carbon Dioxide Level 22 21-32 MMOL/L Anion Gap 13 5-14 MMOL/L Blood Urea Nitrogen 10 7-18 MG/DL Creatinine 0.72 0.60-1.30 MG/DL Estimat Glomerular Filtration Rate > 60 BUN/Creatinine Ratio 14 Glucose Level 138 H 70-105 MG/DL Calcium Level 9.5 8.5-10.1 MG/DL Corrected Calcium 8.5-10.1 MG/DL Total Bilirubin 2.3 H 0.1-1.0 MG/DL Aspartate Amino Transf (AST/SGOT) 18 5-34 U/L Alanine Aminotransferase (ALT/SGPT) 18 0-55 U/L Alkaline Phosphatase 51 40-136 U/L C-Reactive Protein High Sensitivity 1.63 H 0.00-0.50 MG/DL Total Protein 7.8 6.4-8.2 GM/DL Albumin 4.7 H 3.2-4.5 GM/DL Lipase 34 8-78 U/L My Orders Orders - OLIVIA MOORE Ua Culture If Indicated (06/05/20 00:50) Urine Bedside (06/05/20 00:50) Cbc With Automated Diff (06/05/20 00:50) Comprehensive Metabolic Panel (06/05/20 00:50) Lipase (06/05/20 00:50) Hs C Reactive Protein (06/05/20 00:50) Ketorolac Injection (Toradol Injection) (06/05/20 01:00) Pantoprazole Injection (Protonix Injecti (06/05/20 01:00) Ed Iv/Invasive Line Start (06/05/20 00:50) Lactated Ringers (Lr 1000 Ml Iv Solution (06/05/20 01:00) Ondansetron Injection (Zofran Injectio (06/05/20 01:00) Ondansetron Injection (Zofran Injectio (06/05/20 00:51) Urine Culture (06/05/20 00:50) Ceftriaxone For Iv Use (Rocephin For I (06/05/20 01:30) Azithromycin Tablet (Zithromax Tablet) (06/05/20 01:30) Fentanyl Injection (Sublimaze Injection (06/05/20 01:30) Neis Balbir Dna Urine Test (06/05/20 01:19) Chlamydia Trachomatis Urine (06/05/20 01:19) Syphilis Antibody Screen (06/05/20 01:19) Ct Abd/Pelv W (Appendicitis) (06/05/20 01:20) Iohexol Injection (Omnipaque 350 Mg/Ml 1 (06/05/20 02:00) Received Contrast (Hold Metformin- Contr (06/05/20 02:00) Sodium Chloride Flush (Catheter Flush Sy (06/05/20 02:00) Ns (Ivpb) (Sodium Chloride 0.9% Ivpb Bag (06/05/20 02:00) Medications Given in ED Current Medications Medications Dose Ordered Sig/Radha Route Start Time Stop Time Status Last Admin Dose Admin Azithromycin 1,000 mg ONCE ONCE PO 06/05/20 01:30 06/05/20 01:31 IN 06/05/20 01:26 1,000 MG Ceftriaxone Sodium 1000 mg/ Sterile Water 10 ml @ 200 mls/hr ONCE ONCE IV 06/05/20 01:30 06/05/20 01:32 DC 06/05/20 01:26 200 MLS/HR Fentanyl Citrate 25 mcg ONCE ONCE IVP 06/05/20 01:30 06/05/20 01:31 IN 06/05/20 01:27 25 MCG Iohexol 100 ml ONCE ONCE IV 06/05/20 02:00 06/05/20 02:01 IN 06/05/20 01:58 100 ML Ketorolac Tromethamine 30 mg ONCE ONCE IVP 06/05/20 01:00 06/05/20 01:01 IN 06/05/20 00:58 30 MG Lactated Ringer's 1,000 ml @ 0 mls/hr Q0M ONCE IV 06/05/20 01:00 06/05/20 01:01 IN 06/05/20 00:58 999 MLS/HR Ondansetron HCl 4 mg ONCE ONCE IVP 06/05/20 01:00 06/05/20 01:01 IN 06/05/20 00:58 4 MG Pantoprazole 40 mg ONCE ONCE IV 06/05/20 01:00 06/05/20 01:01 IN 06/05/20 00:58 40 MG Sodium Chloride 10 ml NEEDED PRN IV 06/05/20 02:00 06/05/20 01:59 10 ML Sodium Chloride 100 ml ONCE ONCE IV 06/05/20 02:00 06/05/20 02:01 IN 06/05/20 01:59 80 ML Vital Signs/I&O 06/05/20 00:45 Temp 35.9 Pulse 89 Resp 18 B/P (MAP) 107/77 (87) O2 Delivery Room Air Blood Pressure Mean: 87 Progress Progress Note : Time: 00:55 Progress Note Gallbladder, appendix, kidney stone, ovarian cyst/Gyne, obstipation, less likely PUD/duodenitis etc. Plan to give her some pantoprazole, Toradol, Zofran and a liter of fluids. We will get some labs including a lipase and urinalysis. Bedside to rule out ectopic/. Diagnostic Imaging Diagonstic Imaging: CT Comments No acute findings involving the solid abdominal organs, gallbladder or biliary tree. Negative for lower GI tract obstruction or pneumatosis. IUD present in the uterus. Mild nonspecific bladder wall thickening, correlate for cystitis. Pathologic distention of the appendix. Multiple large proximal appendicoliths are present. Mild hyperemia of the appendiceal lanier and mild periappendiceal inflammatory changes. Findings are consistent with acute appendicitis. No imaging findings to suggest perforation. Reviewed: Reviewed [place] Study, Reviewed by Me Departure Communication (Admissions) Time/Spoke to Admitting Phy: 02:30 Discussed the case with Dr. Gottlieb and he agrees to observe the patient plan for surgery today and Zosyn. Impression Primary Impression: Appendicitis Qualified Codes: K35.30 - Acute appendicitis with localized peritonitis, without perforation or gangrene Additional Impression: Urogenital trichomoniasis, unspecified Disposition: ADMITTED INPATIENT Condition: Stable Admissions Decision to Admit Reason: Admit from ER (General) Decision to Admit/Date: Jun 05, 2020 Time/Decision to Admit Time: 02:10 Departure-Patient Inst. Referrals: NO,LOCAL PHYSICIAN (PCP/Family) Primary Care Physician Scripts Metronidazole (Flagyl) 500 Mg Tablet 500 MG PO BID for 7 Days, #21 TAB 0 Refills Prov: OLIVIA MOORE 06/05/20 OLIVIA MOORE Jun 05, 2020 00:56
[2020-06-05 00:57] LABS: BILIRUBIN,URINE NEGATIVE (NEGATIVE); CLARITY,URINE SL CLOUDY; COLOR,URINE YELLOW; GLUCOSE, URINE (UA) NEGATIVE (NEGATIVE); KETONES,URINE NEGATIVE (NEGATIVE); LEUKOCYTE ESTERASE ,URINE NEGATIVE (NEGATIVE); NITRITE,URINE NEGATIVE (NEGATIVE); PROTEIN,URINE NEGATIVE (NEGATIVE)
[2020-06-05] MEDS ORDERED: LACTATED RINGERS 1,000 ML IV ONE (01:00)
[2020-06-05] MEDS ORDERED: ONDANSETRON 4 MG/2 ML (SDV) Z0FRAN IVP ONE (01:00)
[2020-06-05] MEDS ORDERED: PANTOPRAZOLE 40 MG (PROTONIX) VIAL IV ONE (01:00)
[2020-06-05] MEDS ORDERED: KETOROLAC 30 MG/ML VIAL IVP ONE (01:00)
[2020-06-05 01:07] LABS: BASOPHILS % (AUTO) 0 % (0-10); EOSINOPHILS % (AUTO) 0 % (0-10); HEMATOCRIT 38 % (35-52); HEMOGLOBIN 12.9 g/dL (11.5-16.0); LYMPHOCYTES # (AUTO) 1.6 10^3/uL (1.0-4.0); LYMPHOCYTES % (AUTO) 13 % (12-44); MEAN CORPUSCULAR HEMOGLOBIN 31 pg (25-34); MEAN CORPUSCULAR HGB CONC 34 g/dL (32-36); MEAN CORPUSCULAR VOLUME 92 fL (80-99); MEAN PLATELET VOLUME 9.3 fL (9.0-12.2); MONOCYTES # (AUTO) 0.9 10^3/uL (0.0-1.0); MONOCYTES % (AUTO) 7 % (0-12); NEUTROPHILS # (AUTO) 9.8 10^3/uL (1.8-7.8); NEUTROPHILS % (AUTO) 79 % (42-75); PLATELET COUNT 238 10^3/uL (130-400); WHITE BLOOD COUNT 12.5 10^3/uL (4.3-11.0)
[2020-06-05 01:09] LABS: BACTERIA,URINE MODERATE /HPF; TRICHOMONAS,URINE FEW /HPF
[2020-06-05 01:11] LABS: ALBUMIN 4.7 GM/DL (3.2-4.5)
[2020-06-05 01:12] LABS: CHLORIDE 102 MMOL/L (98-107); POTASSIUM 3.7 MMOL/L (3.6-5.0); SODIUM 137 MMOL/L (135-145)
[2020-06-05 01:13] LABS: CALCIUM 9.5 MG/DL (8.5-10.1)
[2020-06-05 01:14] LABS: GLUCOSE 138 MG/DL (70-105); TOTAL PROTEIN 7.8 GM/DL (6.4-8.2)
[2020-06-05 01:15] LABS: CARBON DIOXIDE 22 MMOL/L (21-32)
[2020-06-05 01:16] LABS: BILIRUBIN,TOTAL 2.3 MG/DL (0.1-1.0)
[2020-06-05 01:17] LABS: ALKALINE PHOSPHATASE 51 U/L (40-136)
[2020-06-05 01:18] LABS: CREATININE SERUM 0.72 MG/DL (0.60-1.30); GFR ESTIMATED > 60
[2020-06-05 01:19] LABS: BUN/CREATININE RATIO 14
[2020-06-05 01:21] LABS: ALANINE AMINOTRANSFERASE 18 U/L (0-55); LIPASE 34 U/L (8-78)
[2020-06-05] MEDS ORDERED: cefTRIAXone FOR IV USE 1,000 MG in WATER (STERILE) FOR INJECTION 10 ML IV ONE (01:30)
[2020-06-05] MEDS ORDERED: AZITHROMYCIN 250 MG TAB (ZITHROMAX) PO ONE (01:30)
[2020-06-05] MEDS ORDERED: fentaNYL INJECTION 100 MCG/2 ML AMP IVP ONE ×2 (01:30→12:45)
[2020-06-05] MEDS ORDERED: IOHEXOL 350 MG/ML 100 ML (OMNIPAQUE 350) VIAL IV ONE (02:00)
[2020-06-05] MEDS ORDERED: HOLD METFORMIN - RECEIVED CONTRAST 20 ML VIAL IV SCH (02:00)
[2020-06-05] MEDS ORDERED: NS 100 ML (IVPB) BAG IV ONE (02:00)
[2020-06-05] MEDS ORDERED: CATHETER FLUSH 10 ML SYR IV PRN (02:00)
[2020-06-05] MEDS ORDERED: METR500T PO (02:33)
--- NOTE | 2020-06-05 03:05 | NUR ---
CALLIE PATINO admitted to room 416-1, with an admitting diagnosis of APPENDICITIS, on 06/05/20 from ED via , accompanied by STAFF. CALLIE PATINO introduced to surroundings, call light, bed controls, phone, TV, temperature control, lights, meal times, smoking policy, visitor policy, side rail policy, bathrooms and showers. Patient Rights given to patient in the handbook. CALLIE PATINO verbalizes understanding that [facility] is not responsible for the loss or damage to any personal effects or valuables that are kept in the patients possession during their hospitalization.
[2020-06-05] MEDS ORDERED: ACETAMINOPHEN 650 MG SUPP (TYLENOL) PR PRN (03:30)
[2020-06-05] MEDS ORDERED: fentaNYL INJECTION 100 MCG/2 ML AMP IVP PRN (03:30)
[2020-06-05] MEDS ORDERED: DOXY100C2 PO (03:51)
[2020-06-05] MEDS ORDERED: PIPERACILLIN/TAZOBACTAM 4.5 GM in NS (IVPB) 100 ML IV ONE (04:00)
[2020-06-05] MEDS ORDERED: NS (IVPB) 100 ML ONE (04:19)
[2020-06-05] MEDS ORDERED: PIPERACILLIN/TAZO 4.5 GM VIAL (ZOSYN) IV ONE (04:19)
[2020-06-05] MEDS: LACTATED RINGERS 1,000 ML IV SCH ×2 (04:35→11:38)
[2020-06-05] MEDS: fentaNYL INJECTION 100 MCG/2 ML AMP IVP PRN ×2 (04:35→09:18)
--- NOTE | 2020-06-05 06:14 | Diagnostic Imaging Report ---
PROCEDURE: CT abdomen and pelvis with contrast, rule out appendicitis. TECHNIQUE: Multiple contiguous axial images were obtained through the abdomen and pelvis after the administration of intravenous contrast. All CT scans use one or more of the following dose optimizing techniques: automated exposure control, MA and/or KvP adjustment based on patient size and exam type or iterative reconstruction. INDICATION: Right abdominal pain with nausea and emesis. FINDINGS: There is no focal hepatic or splenic abnormality. Gallbladder, pancreas and adrenal glands are unremarkable. Kidneys have a normal appearance. There is dilatation of the appendix which does contain calcified appendicolith. The appendix reaches approximately 1.8 cm in diameter. There is mild periappendiceal density indicating inflammation. There is no significant free abdominal fluid or evidence of organized fluid collection. Intrauterine device is present and appears to be in good position. Urinary bladder is unremarkable in appearance. IMPRESSION: Enlarged appendix with mild surrounding inflammation. Appendicolith is present. Findings are most suggestive of acute appendicitis without CT evidence of perforation. Dictated by: Dictated on workstation # [id number]
--- NOTE | 2020-06-05 07:25 | History & Physical-Surgical ---
GENICHERELLE MED STUDENT 06/05/20 0725: History of Present Illness History of Present Illness Reason for visit/HPI Pt is a 29yo female presenting with abd pain starting yesterday. She said she was out shopping yesterday around noon when she felt a sudden onset of RLQ pain with nausea but no vomiting. She thought it was gas pains all day until about 12AM this morning when she realized it was probably something more serious. She localizes pain/tenderness to RLQ, 10 after pain medication. She said she experienced some chills last night in bed, Laying still and the pain medication she received helps, movement makes it worse. Denies radiation of pain. Her last bowel movement was Wednesday morning without issues, she last ate something yesterday morning, and had a sip of water this morning about 1AM. Date of Admission Jun 05, 2020 at 02:40 Date Seen by a Provider: Jun 05, 2020 Time Seen by a Provider: 06:40 I consulted on this patient on 06/05/20 07:20 Attending Physician Prema Gottlieb DO Admitting Physician Corrine,Local Physician Consult Allergies and Home Medications Allergies Coded Allergies: morphine (Verified Allergy, Unknown, 12/10/14) Home Medications Doxycycline Hyclate 100 Mg Capsule, 100 MG PO DAILY, (Reported) Fexofenadine HCl 180 Mg Tablet, 180 MG PO DAILY, (Reported) Metronidazole 500 Mg Tablet, 500 MG PO BID Prescribed by: OLIVIA MOORE on 06/05/20 0233 Patient Home Medication List Home Medication List Reviewed: Yes Past Lfmscjp-Nidsfb-Kopcgw Hx Patient Social History Alcohol Use: Denies Use Recreational Drug Use: No Smoking Status: Former Smoker Former Smoker, Quit: Jun 25, 2017 Type Used: Cigarettes 2nd Hand Smoke Exposure: No Recent Foreign Travel: No Contact w/Someone Who Travel: No Recent Infectious Disease Expo: No Recent Hopitalizations: No Immunizations Up To Date Tetanus Booster (TDap): More than 5yrs PED Vaccines UTD: Yes Date of Influenza Vaccine: Mar 14, 2020 Seasonal Allergies Seasonal Allergies: Yes Surgeries History of Surgeries: Yes Respiratory History of Respiratory Disorde: No Cardiovascular History of Cardiac Disorders: No Neurological History of Neurological Disord: No Reproductive System : No Sexually Transmitted Disease: No HIV/AIDS: No Female Reproductive Disorders: Denies Genitourinary History of Genitourinary Disor: No Gastrointestinal History of Gastrointestinal Di: No Musculoskeletal History of Musculoskeletal Dis: No Endocrine History of Endocrine Disorders: No HEENT History of HEENT Disorders: No Cancer History of Cancer: No Psychosocial History of Psychiatric Problem: No Integumentary History of Skin or Integumenta: No Blood Transfusions History of Blood Disorders: No Adverse Reaction to a Blood Tr: No Reviewed Nursing Assessment Reviewed/Agree w Nursing PMH: Yes Family Medical History Family Medial History: Bone cancer (Maternal grandmother) FH: breast cancer (Grandmother) FH: colon cancer (Mother) Review of Systems Constitutional: chills; No fever EENTM: No hearing loss, No vision loss Respiratory: No cough, No dyspnea on exertion, No short of breath Cardiovascular: No chest pain, No edema, No palpitations Gastrointestinal: RLQ, abdominal pain; No constipation, No diarrhea; nausea; No vomiting Genitourinary: No decreased output, No dysuria, No hematuria Musculoskeletal: No muscle pain, No muscle stiffness, No muscle cramps Skin: No change in color, No rash Psychiatric/Neurological: Headache (she says she changed her Invisalign and it may be due to that); Denies Numbness, Denies Tingling, Denies Weakness Physical Exam Vital Signs Vital Signs - First Documented 06/05/20 06/05/20 00:45 02:54 Temp 35.9 Pulse 89 Resp 18 B/P (MAP) 107/77 (87) Pulse Ox 100 O2 Delivery Room Air Capillary Refill : Less Than 3 Seconds Height, Weight, BMI Height: 5'6.00" Weight: 203lbs. 0.8oz. 92.162892mp; 23.75 BMI Method:Stated General Appearance: No Apparent Distress, WD/WN HEENT: PERRL/EOMI, Moist Mucous Membranes Neck: Full Range of Motion, Normal Inspection, Non Tender, Supple Respiratory: Chest Non Tender, Lungs Clear, Normal Breath Sounds, No Accessory Muscle Use, No Respiratory Distress Cardiovascular: Regular Rate, Rhythm, No Edema, No Gallop, No JVD, No Murmur, Normal Peripheral Pulses Gastrointestinal: Normal Bowel Sounds, Soft; No Distended, No Guarding; Tenderness (RLQ) Rectal: Deferred Back: Normal Inspection, No CVA Tenderness, No Vertebral Tenderness Extremity: Normal Capillary Refill, Normal Inspection, Normal Range of Motion, Non Tender Neurologic/Psychiatric: Alert, Oriented x3, No Motor/Sensory Deficits, Normal Mood/Affect Skin: Normal Color, Warm/Dry Lymphatic: No Adenopathy Data Review Labs Laboratory Tests 06/05/20 00:50: Urine Color YELLOW, Urine Clarity SL CLOUDY, Urine pH 6.0, Urine Specific [place] 1.025H, Urine Protein NEGATIVE, Urine Glucose (UA) NEGATIVE, Urine Ketones NEGATIVE, Urine Nitrite NEGATIVE, Urine Bilirubin NEGATIVE, Urine Urobilinogen 0.2, Urine Leukocyte Esterase NEGATIVE, Urine RBC (Auto) NEGATIVE, Urine RBC NONE, Urine WBC 2-5, Urine Squamous Epithelial Cells 2-5, Urine Crystals NONE, Urine Bacteria MODERATEH, Urine Casts NONE, Urine Mucus MODERATEH , Urine Trichomonas FEWH, Urine Culture Indicated YES 06/05/20 00:55: White Blood Count 12.5H, Red Blood Count 4.18, Hemoglobin 12.9, Hematocrit 38, Mean Corpuscular Volume 92, Mean Corpuscular Hemoglobin 31, Mean Corpuscular Hemoglobin Concent 34, Red Cell Distribution Width 11.7, Platelet Count 238, Mean Platelet Volume 9.3, Immature Granulocyte % (Auto) 0, Neutrophils (%) (Auto) 79H, Lymphocytes (%) (Auto) 13, Monocytes (%) (Auto) 7, Eosinophils (%) (Auto) 0, Basophils (%) (Auto) 0, Neutrophils # (Auto) 9.8H, Lymphocytes # (Auto) 1.6, Monocytes # (Auto) 0.9, Eosinophils # (Auto) 0.0, Basophils # (Auto) 0.0, Immature Granulocyte # (Auto) 0.1, Sodium Level 137, Potassium Level 3.7, Chloride Level 102, Carbon Dioxide Level 22, Anion Gap 13, Blood Urea Nitrogen 10, Creatinine 0.72, Estimat Glomerular Filtration Rate > 60, BUN/Creatinine Ratio 14, Glucose Level 138H, Calcium Level 9.5, Corrected Calcium , Total Bilirubin 2.3H, Aspartate Amino Transf (AST/SGOT) 18, Alanine Aminotransferase (ALT/SGPT) 18, Alkaline Phosphatase 51, C-Reactive Protein High Sensitivity 1.63H, Total Protein 7.8, Albumin 4.7H, Lipase 34 06/05/20 03:50: Coronavirus 2019 (ADOLFO) Negative Assessment/Plan Assessment/Plan Admission Diagonsis Acute abd pain/Appendicitis Assessment/Plan Acute abd pain/Appendicitis CT abd/pelvis showed changes indicative of appendicitis(inflammation, enlarged, appendicolith present), and physical exam also supports this diagnosis with tenderness to RLQ Plan for appendectomy today NPO, Abx, pain management Clinical Quality Measures DVT/VTE Risk/Contraindication: Risk Factor Score Per Nursin RFS Level Per Nursing on Admit: 2=Moderate PREMA GOTTLIEB DO 06/05/20 0949: History of Present Illness History of Present Illness Reason for visit/HPI CC: rlq abd pain 29 year old female yesterday began havign sharp stabbin pain rlq. Nausea no emesis. Pain continued to worsen. No radiation of pain. Moving makes worse. Laying still made better. Rates moderate to severe at times. Had ct scan shows appendicolith and changes of acute appendicitis. Having chills. [place] fever sweats chills shortness of breath or chest pain. Allergies and Home Medications Allergies Coded Allergies: morphine (Verified Allergy, Unknown, 12/10/14) Home Medications Doxycycline Hyclate 100 Mg Capsule, 100 MG PO DAILY, (Reported) Fexofenadine HCl 180 Mg Tablet, 180 MG PO DAILY, (Reported) Metronidazole 500 Mg Tablet, 500 MG PO BID Prescribed by: OLIVIA MOORE on 06/05/20 0230 Patient Home Medication List Home Medication List Reviewed: Yes Past Nsuiewn-Jhzmef-Eulqfy Hx Reviewed Nursing Assessment Reviewed/Agree w Nursing PMH: Yes Family Medical History Significant Family History: No Pertinent Family Hx Family Medial History: Bone cancer (Maternal grandmother) FH: breast cancer (Grandmother) FH: colon cancer (Mother) Review of Systems Constitutional: chills; No fever EENTM: No hearing loss, No vision loss Respiratory: No cough, No dyspnea on exertion, No short of breath Cardiovascular: No chest pain, No edema, No palpitations Gastrointestinal: RLQ, abdominal pain (RLQ); No constipation, No diarrhea; nausea; No vomiting Genitourinary: No decreased output, No dysuria, No hematuria Musculoskeletal: No muscle pain, No muscle stiffness, No muscle cramps Skin: No change in color Psychiatric/Neurological: Denies Numbness, Denies Tingling, Denies Weakness All Other Systems Reviewed Negative Unless Noted: Yes (Negative excepted noted.) Physical Exam General Appearance: No Apparent Distress, WD/WN HEENT: PERRL/EOMI, Normal ENT Inspection Neck: Full Range of Motion, Normal Inspection, Non Tender, Supple Respiratory: Chest Non Tender, No Accessory Muscle Use, No Respiratory Distress Cardiovascular: Regular Rate, Rhythm Gastrointestinal: Soft; No Distended, No Guarding; Tenderness (RLQ) Rectal: Deferred Back: No CVA Tenderness, No Vertebral Tenderness Extremity: Normal Inspection, Normal Range of Motion, Non Tender Neurologic/Psychiatric: Alert, Oriented x3, No Motor/Sensory Deficits, Normal Mood/Affect Skin: Normal Color Lymphatic: No Adenopathy Assessment/Plan Assessment/Plan Admission Diagonsis acute appendicitis rlq abd pain Admission Status: Observation Assessment/Plan acute appendicitis rlq abdominal pain patient discussed risks and benefits of laparoscopic appendectomy all other indicated procedures understands and wishes to proceed. Npo On Zosyn to or Supervisory-Addendum Brief Verification & Attestation Participated in pt care: history, MDM, physical Personally performed: exam, history, MDM, supervision of care Care discussed with: Medical Student Procedures: n/a Results interpretation: Verified all documentation Verification and Attestation of Medical Student E/M Service A medical student performed and documented this service in my presence. I reviewed and verified all information documented by the medical student and made modifications to such information, when appropriate. I personally performed the physical exam and medical decision making. Prema Gottlieb, Jun 05, 2020,09:49 CHERELLE ARECHIGA MED STUDENT Jun 05, 2020 07:25 PREMA GOTTLIEB DO Jun 05, 2020 09:49
[2020-06-05] MEDS ORDERED: LIDOCAINE/EPI 1%-1:200,000 (XYLOCAINE) 30 ML VIAL ONE (08:10)
[2020-06-05] MEDS ORDERED: LACTATED RINGERS 1,000 ML IV PRN (08:15)
[2020-06-05] MEDS ORDERED: LIDOCAINE/EPI 1%-1:100,000 (XYLOCAINE) 50 ML ONE (09:48)
[2020-06-05] MEDS ORDERED: [UNRECOGNIZED DRUG - CODE] PO (09:50)
[2020-06-05] MEDS ORDERED: IBUP-2185 PO (09:50)
[2020-06-05] MEDS ORDERED: CALC300T4 PO (09:50)
--- NOTE | 2020-06-05 09:57 | NUR ---
SPOKE WITH THE PT AND WENT THRU THE EXT MED HISTORY TO COMPLETE THE MED REC ACCORDING TO THE PT THE ONLY PRESCRIPTION MEDICATION SHE TAKES IS DOXYCYCLINE HYCLATE 100MG DAILY FOR ACNE. OTC MEDS: OUMAR 180MG WOMENS ALIVE [employer] IBUPROFEN PRN TUMS PRN
[2020-06-05] MEDS ORDERED: PIPERACILLIN/TAZO 4.5 GM/NS 100 ML IV SCH ×2 (10:00)
--- NOTE | 2020-06-05 10:22 | NUR ---
PT TAKEN OFF FLOOR FOR PROCEDURE VIA PT BED.
[2020-06-05] MEDS ORDERED: MIDAZOLAM 2 MG/2 ML (VERSED) VIAL ONE (10:33)
[2020-06-05] MEDS ORDERED: fentaNYL INJECTION 100 MCG/2 ML AMP ONE (10:33)
[2020-06-05] MEDS ORDERED: ROCURONIUM 10 MG/ML 5 ML SYRINGE IV ONE (11:51)
[2020-06-05] MEDS ORDERED: SEVOFLURANE (ULTANE) 15 ML INHAL SOLN ONE ×2 (11:51→11:52)
[2020-06-05] MEDS ORDERED: proPOfol 200 MG/20 ML (DIPRIVAN) VIAL IV ONE (11:52)
[2020-06-05] MEDS ORDERED: KETOROLAC 30 MG/ML VIAL ONE (11:52)
--- NOTE | 2020-06-05 11:55 | Progress Note-Post Operative ---
Post-Operative Progess Note Surgeon (s)/Funeral Service Licensee (s) Surgeon PREMA COFFEY DO Funeral Service Licensee: na Pre-Operative Diagnosis appendicitis Post-Operative Diagnosis same Procedure & Operative Findings Date of Procedure 06/05/20 Procedure Performed/Findings PROCEDURE: Laparoscopic appendectomy. COMPLICATIONS: None. INDICATIONS: The patient is a 29 year old female who has been having right lower quadrant abdominal pain. Patient's exam consistent with appendicitis. I discussed risk and benefits of laparoscopic appendectomy and all indicated procedures with the possibility being a normal appendix. The patient understands the risks and benefits and wishes to proceed. Consent was signed on the chart. DESCRIPTION OF PROCEDURE: The patient was taken to the operating suite, prepped and draped in a sterile fashion. Timeout was performed. Local anesthetic was infiltrated just above the umbilicus and 11-blade scalpel was used to make a skin incision. Cautery was used to dissect down to the fascia and scored. Kochers were used to grasp and elevate it and the abdomen was then entered. A 0 Vicryl was placed in a [id number] fashion for closure at the end of the case. The balloon trocar was inserted into the abdomen and pneumoperitoneum was achieved. Under direct visualization of the laparoscope, a 5 mm trocar was placed in the suprapubic region and a 5 mm trocar was placed in the left lower quadrant. Appendix was located, Inflammed appendix, dilated. The base of the appendix was dissected around. Once at the base an Endo-SHADY 2.5 stapler was then fired across the base of the appendix. The mesoappendix was then divided. It was then placed in an Endobag and removed through the 12 mm trocar site. The abdomen was then irrigated and suctioned. No other pathology noted. The abdomen was then desufflated and the trocars were removed. The 0 Vicryl placed at the beginning of the case was then tied closing the 12 mm fascial defect. The skin was then closed using 4-0 Monocryl in a subcuticular fashion. The abdomen was then washed and dried and Skin Affix was placed over the incisions. The patient tolerated the procedure well without any complications and was taken to the recovery room in stable condition. Anesthesia Type general Estimated Blood Loss Estimated blood loss (mL): minimal Specimens/Packing Specimens Removed PREMA Carmona DO Jun 05, 2020 11:55
[2020-06-05] MEDS ORDERED: HYDR-4226 PO (11:56)
[2020-06-05] MEDS ORDERED: DOCU-143 PO (11:56)
--- NOTE | 2020-06-05 11:56 | Discharge Inst-Simple/Standard ---
Discharge Inst-Standard Discharge Medications New, Converted or Re-Newed RX: RX on Chart Patient Instructions/Follow Up Plan of Care/Instructions/FU: 2 weeks Chery Activity as Tolerated: No Discharge Diet: Regular Diet Other Inst to Patient Follow up Appt: Make appointment for 2-3 week. Instructions: No lifting greater than 10 pounds. No strenuous activity. May shower in 24 hours, no tub bath or soaking. Use incentive spirometer at home as directed. No Smoking Skin/Wound Care: You have special glue over your incision that will fall off on it's own. Symptoms to Report: Appetite Changes, Extremity Discoloration, Numbness/Tingling, Swelling Increased, Bleeding Excessive, Eyesight Changes, Pain Increased, Urine Color Change, Constipation(Persistent), Fever over 101 degree F, Pain/Pressure in chest, Urinating Difficulty, Cough Up/Vomit Blood, Heart Beat Irreg/Pounding, Pain/Pressure in jaw, Vaginal Bleeding Increase, Cramps in feet or legs, Lightheadedness, Pain/Pressure in shoulder, Diarrhea(Persistent), Memory Changes Suddenly, Questions/Concerns, Weight gain consecutive days, Dizziness/Fainting, Nausea/Vomiting, Shortness of Breath, Weight gain over 2 pounds If questions or concerns contact your physician Or seek help at emergency department. PREMA COFFEY DO Jun 05, 2020 11:56
--- NOTE | 2020-06-05 12:34 | Anesthesia-General Post-Op ---
General Patient Condition Mental Status/LOC: Same as Preop Cardiovascular: Satisfactory Nausea/Vomiting: Absent Respiratory: Satisfactory Pain: Controlled Complications: Absent Post Op Complications Complications None Follow Up Care/Instructions Patient Instructions None needed. Anesthesia/Patient Condition Patient Condition Patient is doing well, no complaints, stable vital signs, no apparent adverse anesthesia problems. No complications reported per nursing. DIANA HILTON CRNA Jun 05, 2020 12:34
[2020-06-05] MEDS ORDERED: ONDANSETRON 4 MG/2 ML (SDV) Z0FRAN IVP PRN (12:45)
[2020-06-05] MEDS ORDERED: morphine INJ 10 MG/ML 1ML (SYR OR VIAL) IVP ONE (12:45)
[2020-06-05] MEDS ORDERED: HYDROcodone/APAP 5 MG/325 MG (LORTAB) TAB PO NR (14:45)
--- NOTE | 2020-06-06 10:48 | Anesthesia-General Post-Op ---
General Patient Condition Mental Status/LOC: Same as Preop Cardiovascular: Satisfactory Nausea/Vomiting: Absent Respiratory: Satisfactory Pain: Controlled Complications: Absent Post Op Complications Complications None Follow Up Care/Instructions Patient Instructions None needed. Anesthesia/Patient Condition Patient Condition Patient is doing well, no complaints, stable vital signs, no apparent adverse anesthesia problems. No complications reported per nursing. RAQUEL WATSON CRNA Jun 06, 2020 10:48
== END 2020-06-05 15:30 | disposition home or self-care (01) ==
LOC: EDUNIT# 00:33 → ER 00:39 → UNDOADMOB 02:40 → 4TH 02:40 → SDC 02:40 → 4TH 02:40 → SDC 15:30 → UNDODISOB 15:30
PROVIDERS: ATTEND Surgery
DX: K35.80 Unspecified acute appendicitis (principal); A59.00 Urogenital trichomoniasis, unspecified; Z88.5 Allergy status to narcotic agent; Z87.891 Personal history of nicotine dependence; Z20.828 Contact with and (suspected) exposure to other viral communicable diseases
CPT/HCPCS: 44970; 74177; 80053; 81000; 83690; 84702; 84703; 85025; 86141; 86780; 87081; 87088; 87491; 87591; 88304; 99284; U0002; 36415; 87635